=== PATIENT | female | born 1955 | race Caucasian/White ===

== ENCOUNTER → 2019-01-09 | Outpatient (CLI) | payer OTHER | LOC: MC.RAD 09:36 | DX: C50.412 Malignant neoplasm of upper-outer quadrant of left female breast (principal) ==

== ENCOUNTER → 2019-01-10 | Outpatient (CLI) | payer OTHER | LOC: MC.RAD 08:30 | DX: C50.811 Malignant neoplasm of overlapping sites of right female breast (principal) ==

== ENCOUNTER 2019-01-15 06:28 | Day surgery (SDC) | payer OTHER ==
[~2019-01-15] VITALS: Ht 165.1 cm; Wt 75.0 kg
[2019-01-15] MEDS ORDERED: LOTENSIN HCT 201 TA1 PO (07:30)
[2019-01-15] MEDS ORDERED: SYNTHROID0.1 MG/TAB PO (07:30)
[2019-01-15] MEDS ORDERED: LIPITOR 40MG TA40 MG PO (07:31)
[2019-01-15 07:53] VITALS: BP 150/53; PULSE 64; TEMP 97.6
--- NOTE | 2019-01-15 09:00 | NUR ---
Resting and awaits return to radiology.
--- NOTE | 2019-01-15 09:58 | NUR ---
Patient returns to radiology per wheelchair. IV converted to INT.
--- NOTE | 2019-01-15 11:00 | NUR ---
Patient returns to room 6 per wheelchair from radiology and transfers to cart.
[2019-01-15] MEDS ORDERED: NORCO 325 MG-51 TAB PO (13:18)
[2019-01-15 13:42] VITALS: TEMP 96.9
[2019-01-15 13:50] VITALS: BP 146/54; PULSE 66
--- NOTE | 2019-01-15 13:50 | NUR ---
Patient returns to room 6 per cart and is awake and alert. Head of cart elevated and dressing on the right breast and axilla dry. Temp 97.8 and sats 97% on 2L per nasal cannula. Spouse in room. Siderails up x2 and call light in reach. Denies pain or nausea. Sipping on water and coffee.
[2019-01-15 14:05] VITALS: BP 136/56; PULSE 65
--- NOTE | 2019-01-15 14:05 | NUR ---
Patient is resting comfortably in room. VSS and WNL on 2L nasal cannula. Oxygen titrated down to room air - will continue to monitor for need for oxygen. at the bedside. Tolerating PO well. Discharge criteria explained. Call light in reach. Denies pain or nausea.
[2019-01-15 14:20] VITALS: BP 134/60; PULSE 64
--- NOTE | 2019-01-15 14:20 | NUR ---
Patient resting comfortably in room. Patient's spouse asks what they need to do to discharge home. Explained discharge criteria and offered to escort patient to restroom to void. She states she would like to drink some more water and then try at next vital check. VSS and WNL on room air.
--- NOTE | 2019-01-15 14:31 | NUR ---
Dr. Lowry at the bedside at this time to talk with patient about post-operative pain prescriptions.
[2019-01-15 14:35] VITALS: BP 143/50; PULSE 71
--- NOTE | 2019-01-15 14:35 | NUR ---
Patient is resting comfortably. She has a small amount of dry drainage on the edge of her dressing that is seen through a loose edge. Dressing reinforced with gauze and tape. Breast is soft to the touch and no visible current drainage noted. VSS and WNL on room air. Patient ambulates to rest room, voids, and returns to room.
--- NOTE | 2019-01-15 14:50 | NUR ---
Patient has met discharge criteria. Discharge instructions discussed, denies any questions, and verbalizes understanding. Changes to clothing independently. PIV removed with catheter intact and hemostasis achieved. Escorted to exit via wheelchair. Discharged to home with ride in private vehicle at 1450.
== END 2019-01-15 14:50 | disposition home or self-care (01) ==
LOC: SDCO 06:28
DX: C50.111 Malignant neoplasm of central portion of right female breast (principal); C50.412 Malignant neoplasm of upper-outer quadrant of left female breast; Z17.0 Estrogen receptor positive status [ER+]; I10 Essential (primary) hypertension; Z79.899 Other long term (current) drug therapy; F17.210 Nicotine dependence, cigarettes, uncomplicated; E07.9 Disorder of thyroid, unspecified; Z80.42 Family history of malignant neoplasm of prostate; Z90.49 Acquired absence of other specified parts of digestive tract
CPT/HCPCS: A9541; J0690; J1100; J1885; J2250; J2405; J2704; J3010; J7120